=== PATIENT | female | born 1985 | race Caucasian/White ===

== ENCOUNTER 2017-07-25 15:53 | Emergency (ER) | payer OTHER ==
[~2017-07-25] VITALS: Ht 172.7 cm; Wt 61.2 kg
[2017-07-25] MEDS ORDERED: [UNRECOGNIZED DRUG - OTHER] (16:12)
[2017-07-25] MEDS ORDERED: [UNRECOGNIZED DRUG - REMARK] (16:12)
[2017-07-25] MEDS ORDERED: SERT100T PO (16:12)
[2017-07-25] MEDS ORDERED: LORA0.5T48 PO (16:12)
[2017-07-25] MEDS ORDERED: IV NORMAL SALINE 1000 ML BAG IV ONE (16:30)
[2017-07-25] MEDS ORDERED: ONDANSETRON 4 MG/2 ML VIAL IV ONE (16:30)
[2017-07-25 16:54] LABS: BASOPHILS # (AUTO) 0.1 K/uL (0.0-8.0); BASOPHILS % (AUTO) 1.2 % (0.0-2.0); EOSINOPHILS % (AUTO) 0.9 % (0.0-7.0); HEMATOCRIT 43.3 % (37-47); HEMOGLOBIN 14.6 G/DL (12.0-16.0); LYMPHOCYTES # (AUTO) 0.5 K/UL (0.8-4.8); LYMPHOCYTES % (AUTO) 10.8 % (20.5-51.5); MEAN CORPUSCULAR HEMOGLOBIN 30.9 UUG (27.0-31.0); MEAN CORPUSCULAR HGB CONC 34 g/dL (32.0-37.0); MEAN CORPUSCULAR VOLUME 91.6 FL (81.0-99.0); MONOCYTES # (AUTO) 0.4 K/UL (0.1-1.30); MONOCYTES % (AUTO) 7.7 % (0.0-11.0); NEUTROPHILS # (AUTO) 3.9 K/UL (1.8-8.9); NEUTROPHILS % (AUTO) 79.4 % (38.5-71.5); PLATELET COUNT (AUTO) 428 K/UL (150-450); RED BLOOD CELL COUNT(AUTO) 4.73 MIL/UL (4.2-5.4); WHITE BLOOD COUNT (AUTO) 4.9 K/UL (4.0-11.2)
[2017-07-25] MEDS ORDERED: ONDANSETRON 4 MG/2 ML VIAL ONE (16:54)
[2017-07-25 16:57] LABS: BILIRUBIN,DIRECT 0.2 mg/dL (0.0-0.2); CREATININE 0.8 mg/dL (0.6-1.3)
[2017-07-25 17:04] LABS: POTASSIUM 2.8 mmol/L (3.5-5.1)
[2017-07-25] MEDS ORDERED: POTASSIUM CHLORIDE 20 MEQ TAB.PRT.SR PO ONE (17:15)
[2017-07-25] MEDS ORDERED: IV D5W-0.45% NS +20 KCL 1,000 ML IV ONE (17:15)
--- NOTE | 2017-07-25 17:20 | NUR ---
Jacobo nuno in EDM - 07/25/17 at 1724 by MISAEL Patient discharged to home in stable conditon with sister. Written and verbal after care instructions given. Patient and sister verbalizes understanding of instructions. Stressed follow up with pmd.
[2017-07-25] MEDS ORDERED: POTASSIUM CHLORIDE 20 MEQ TAB.PRT.SR ONE (17:43)
--- NOTE | 2017-07-25 19:11 | NUR ---
PT WAS EVALUATED BY DR SHELTON. PT WAS D/C 'd TO HOME. D/C INSTRUCTIONS GIVEN TO THE PT.
[2017-07-25 19:14] VITALS: BP 121/75
== END 2017-07-25 19:16 | disposition home or self-care (01) ==
LOC: ER 15:54
DX: E87.6 Hypokalemia (principal); R11.10 Vomiting, unspecified; R19.7 Diarrhea, unspecified; Z88.6 Allergy status to analgesic agent
CPT/HCPCS: 36415; 80048; 80076; 83690; 84703; 85025; 96361; 96365; 96375; 99284; A4663; J2405; J3490; J7030